=== PATIENT | male | born 1975 | race Hispanic/Latino ===

== ENCOUNTER 2018-03-07 10:15 | Emergency (ER) | payer MEDICAID, OTHER | END 2018-03-07 11:08 | disposition home or self-care (01) | LOC: EDH 10:15 | DX: S50.812A Abrasion of left forearm, initial encounter (principal); Z72.0 Tobacco use; Y35.893A Legal intervention involving other specified means, suspect injured, initial encounter; Y93.89 Activity, other specified; Y92.89 Other specified places as the place of occurrence of the external cause; Y99.8 Other external cause status ==